=== PATIENT | female | born 1975 | race Hispanic/Latino ===

== ENCOUNTER 2019-06-17 08:26 | Emergency (ER) | payer SELFPAY ==
[~2019-06-17] VITALS: Ht 157.5 cm; Wt 54.4 kg
--- OUTSIDE RECORDS SUMMARY | 2019-06-17 08:29 | XMS REPORT | Continuity of Care Document ---
Author Author Aniika Address Unknown Phone Unavailable Care Team Providers Care Bulkhead Carpenter Name Role Phone HandInScan Unavailable Unavailable Problems Problem Status Onset Date Classification Date Reported Comments Source Abnormal uterine and vaginal bleeding, unspecified 06/18/2018 12/30/2018 [facility] Z12.31 - ENCNTR SCREEN MAMMOGRAM FOR MA Active 01/09/2016 [facility] 729.5 - PAIN IN LIMB Active 2013 [facility] 338 - PAIN NEC 564.0 - CONSTIPATION Active 03/20/2012 [facility] 789.00 - ABDMNAL PAIN UN 615.9 - UTERINE INFLAM Active 03/08/2011 [facility] WHEEZING Active 01/14/2011 [facility] Intramural leiomyoma of uterus 12/30/2018 [facility] Medications No Data Provided for This Section Allergies, Adverse Reactions, Alerts No Known Medication Allergies Immunizations No Data Provided for This Section Results No Data Provided for This Section Pathology Reports No Data Provided for This Section Diagnostic Reports Report Value Date Source Pelvis w Pelvis Transvaginal US EXAM: Pelvic ultrasound. CLINICAL HX: D25.1 Intramural leiomyoma of uterus; N93.9 Abnormal uterine and vaginal bleeding, unspecified - D25.1 Intramural leiomyoma of uterus; N93.9 Abnormal uterine and vaginal bleeding, unspecified. Age: 42 years. Gender: Female. Last menstrual period: 06/02/2018. TECHNIQUE: Grayscale and Doppler sonogram of the pelvis. Transabdominal technique was used. Transvaginal technique was used for better evaluation of the pelvic viscera. COMPARISON: None. FINDINGS: Uterus: -- Orientation: Retroverted. -- Size: Measures 9.2 x 5 x 5.8 cm. -- Other: 1.2 x 0.7 x 1.1 cm intramural right uterine fibroid. Endometrial stripe: -- Thickness: Measures 1.5 cm which is not thickened by measurement. -- Other: Question submucosal lesion at the fundus (series 1 image 62). Right ovary: -- Size: Measures 2.5 x 1.3 x 1.9 cm. -- Doppler flow: Present. -- Other: None. Left ovary: -- Size: Measures 2.9 x 2 x 2.3 cm. -- Doppler flow: Present. -- Other: 2.1 cm simple follicular cyst; no follow-up imaging recommended (per guidelines below). Free fluid: Trace. Other: None. IMPRESSION: 1. Small intramural fibroid. 2. Question submucosal lesion. Consider VACUUM BOTTLE ASSEMBLER evaluation. Note: Recommendations for f/u of anechoic simple cyst* Pre-menopause: < 5 cm No f/u necessary >5cm - <7cm US f/u yearly >7cm Consider MR w/IVC or surgical evaluation Post-menopause (1 year or more since last menstrual period): <3 cm No f/u necessary >3cm - <7 cm US f/u yearly >7cm Consider MR w/IVC or surgical evaluation Reference: 2010 SRU Consensus Conference Statement on the Management of asymptomatic ovarian and adnexal cysts imaged at US. Radiology. 2009;256(3): 943-54. (*Also includes simple cyst with single thin <3mm septation or focal calcification in wall of cyst) 06/12/2018 [facility] Breast Mammo Scrn SOLO incl CAD MA - BREAST MAMMO SCRN SOLO INCL CAD MA BILATERAL DIGITAL SCREENING MAMMOGRAM WITH CAD: 05/26/2017 CLINICAL: Screening/Z12.31. Current study was evaluated with a Computer Aided Detection (CAD) system. Comparison is made to exams dated: 01/19/2016 mammogram and 01/06/2015 mammogram - [facility]. The tissue of both breasts is extremely dense. This may lower the sensitivity of mammography. No significant masses, calcifications, or other findings are seen in either breast. There has been no significant interval change. IMPRESSION: NEGATIVE There is no mammographic evidence of malignancy. A 1 year screening mammogram is recommended. Professional services are provided by the [facility]. Jone Leon M.D., cm/penrad:05/28/2017 10:24:19 Bindery Machine Tender: Livier High, [facility] This exam was dictated and interpreted by [id number] for EMELIA Grant. letter sent: Normal [facility]enda Mammogram BI-RADS: 1 Negative 05/26/2017 EMELIA W[facility]MAN [place] Pelvis w Pelvis Transvaginal US EXAM: Pelvis w Pelvis Transvaginal US HISTORY: - R10.2 Pelvic and perineal pain COMPARISON: None Technique: Transabdominal and Transvaginal Carreon scale and color doppler with limited spectral doppler imaging of the uterus and ovaries. Findings: The uterus measures 10.0 x 4.8 x 5.4 cm. The endometrial stripe measures 0.4 cm. There is 1.2 cm fibroid in the anterior right uterus intramural. Nabothian cysts are noted. The right ovary measures 3.0 x 1.8 x 2.6 cm. The left ovary measures 2.7 x 1.1 x 2.3 cm. There is normal doppler flow. No large masses are seen in the bilateral adnexa. There is moderate free fluid. The bladder is distended and grossly unremarkable. IMPRESSION: Small fibroid. Moderate free fluid is likely physiologic. 05/26/2017 [facility] Mammo Screening Solo MA - DIGITAL MAMMO SCREENING SOLO MA BILATERAL DIGITAL SCREENING MAMMOGRAM WITH CAD: 01/19/2016 CLINICAL: Routine. Current study was evaluated with a Computer Aided Detection (CAD) system. Comparison is made to exam dated: 01/06/2015 mammogram - [facility]. The tissue of both breasts is heterogeneously dense, which could obscure detection of small masses. No significant masses, calcifications, or other findings are seen in either breast. There has been no significant interval change. IMPRESSION: NEGATIVE There is no mammographic evidence of malignancy. A 1 year screening mammogram is recommended. Jone Leon M.D., cm/penrad:01/22/2016 09:34:36 Bindery Machine Tender: Karin Calabrese RT(R)(M), [facility] This exam was dictated and interpreted by [id number] for EMELIA Grant. letter sent: Normal exam Mammogram BI-RADS: 1 Negative 01/19/2016 [facility] Breast Limited Uni US - BREAST LIMITED UNI US/L ULTRASOUND OF LEFT BREAST: 01/19/2015 CLINICAL: 611.72 Mastodynia. Comparison is made to exam dated: 01/06/2015 mammogram - [facility]. Color flow and real-time ultrasound of the left breast were performed. Carreon scale images of the real-time examination were reviewed. IMPRESSION: NEGATIVE There is no sonographic evidence of malignancy. A 1 year screening mammogram is recommended. SUMMARY: No sonographic correlate to the reported pain in the left breast. Therefore, management of this symptom should be based on findings at clinical examination. Additional imaging should be considered if symptoms recur or worsen. I discussed these findings with the patient in person at the time of examination. Elizabeth Vaz [facility]/penrad:01/19/2015 16:23:01 Bindery Machine Tender: Lisha Gonzalez, [facility] This exam was dictated and interpreted by [id number] for Rudy. letter sent: Normal exam Ultrasound BI-RADS: 1 Negative 01/19/2015 [facility]ammo Screening Solo MA - DIGITAL MAMMO SCREENING SOLO MA BILATERAL FIRST EVER DIGITAL SCREENING MAMMOGRAM WITH CAD: 01/06/2015 CLINICAL: Routine. Current study was evaluated with a Computer Aided Detection (CAD) system. No prior exams were available for comparison. The tissue of both breasts is heterogeneously dense, which could obscure detection of small masses. No significant masses, calcifications, or other findings are seen in either breast. IMPRESSION: NEGATIVE There is no mammographic evidence of malignancy. A 1 year screening mammogram is recommended. SUMMARY: The patient reported a history of breast pain on her intake questionaire. There is no mammographic correlate to the report symptom of pain in left breast. Therefore, management of this symptom should be based on findings at clinical examination. Targeted sonography should be considered if the pain is clinically suspicious. Dr. Vanita Kern D.O. /penrad:01/06/2015 15:52:09 Bindery Machine Tender: Sheridan COCHRAN(Penny)([place]), [facility] This exam was dictated and interpreted by [id number] for EMELIA Aguero. letter sent: Normal exam Mammogram BI-RADS: 1 Negative 01/06/2015 [facility] Pelvis with Pelvis Transvaginal US PELVIC SONOGRAM CLINICAL HISTORY: 626.4, irregular periods COMPARISON IMAGIN03/23/2012 TECHNIQUE: Transabdominal and transvaginal real time sonography was performed by an pharmacy technologist, and hvac sales representative static images were submitted for review. FINDINGS: Uterus: Measures 8.2 x 4.4 x 6.5 cm. Endometrial stripe is 14 mm in thickness, within normal limits. No distinct uterine mass is identified. There is a small amount of free fluid in the pelvis. Right Adnexa: Ovary measures 2.9 x 2.2 x 3.5 cm. No abnormal Doppler signal or suspicious adnexal abnormality. Left Adnexa: Ovary measures 2.2 x 1.5 x 2.8 cm. No abnormal Doppler signal or suspicious adnexal abnormality. IMPRESSION: No significant abnormality. 12/16/2013 [facility] Consultation Notes No Data Provided for This Section Discharge Summaries No Data Provided for This Section History and Physicals No Data Provided for This Section Vital Signs No Data Provided for This Section Encounters Location Location Details Encounter Type Encounter Number Reason For Visit Attending Provider ADM Date DC Date Status Source OD [id number] 338 - PAIN NEC 564.0 - CONSTIPATION FER REGINALD 03/23/2012 Active [facility] [place] [facility] [id number] Araceli Reji 01/06/2015 01/07/2015 [facility] [place] [facility] [id number] Araceli Reji 01/19/2015 01/20/2015 [facility] [place] [facility] [id number] Araceli Reji 01/19/2016 01/20/2016 [facility] [place] [facility] [id number] Araceli Reji 05/26/2017 05/27/2017 [facility] [place] [facility] [id number] Kala Maryann 06/12/2018 06/13/2018 [facility] [place] [id number] 789.00 - ABDMNAL PAIN UN 615.9 - UTERINE INFLAM ARACELI REJI Cancel [facility] [id number] WHEEZING ARACELI REJI Cancel [facility] Procedures No Data Provided for This Section Assessment and Plan No Data Provided for This Section Plan of Care No Data Provided for This Section Social History Social History Date Source No data available for this section 06/13/2018 [facility] Family History No Data Provided for This Section Advance Directives No Data Provided for This Section Functional Status No Data Provided for This Section
--- OUTSIDE RECORDS SUMMARY | 2019-06-17 08:30 | XMS REPORT | Summary of Care ---
Author Organization Unknown Address Unknown Phone Unavailable Encounter [facility] Encntr_alias([facility]) [id number] Date(s): 01/19/15 - 01/19/15 [facility] Outpatient Imaging - [address] [address] [phone] Discharge Disposition: Home Physician Attending: Gardenia Chicas MD Vital Signs No data available for this section Problem List No data available for this section Allergies, Adverse Reactions, Alerts No data available for this section Medications No data available for this section Results No data available for this section Immunizations No data available for this section Procedures No data available for this section Social History No data available for this section Assessment and Plan No data available for this section
--- OUTSIDE RECORDS SUMMARY | 2019-06-17 08:30 | XMS REPORT | Summary of Care ---
Author Author [facility] [place] Organization [facility] [place] Address Unknown Phone Unavailable Encounter HQ Encntr_alismita(FIN) [id number] Date(s): 05/26/17 - 05/26/17 [facility] [place] [address] [place] [phone] Discharge Disposition: Home or Self Care Attending Physician: Gardenia Chicas MD Vital Signs No data [...]
--- OUTSIDE RECORDS SUMMARY | 2019-06-17 08:30 | XMS REPORT | Summary of Care ---
Author Author [facility] [place] Organization [facility] [place] Address Unknown Phone Unavailable Encounter [facility] Encntr_alismita(FIN) [id number] Date(s): 01/19/16 - 01/19/16 [facility] [place] [address] [place], [place] [address] [phone] Discharge Disposition: Home Attending Physician: Gardenia Chicas MD Vital Signs [...]
--- OUTSIDE RECORDS SUMMARY | 2019-06-17 08:30 | XMS REPORT | Summary of Care ---
Author Author [facility] - [place] Organization [facility] [place] Address Unknown Phone Unavailable Encounter [facility] Encntr_alias(FIN) [id number] Date(s): 06/12/18 - 06/12/18 [facility] - [place] [address] [place] [phone] Encounter Diagnosis Abnormal uterine and vaginal bleeding, unspecified (Final) - 06/17/18 Intramural leiomyoma of uterus (Final) - Discharge Disposition: Home or Self Care Attending Physician: Kala Wolf MD Referring Physician: Kala Wolf MD Vital Signs No data available for [...]
[2019-06-17 10:39] LABS: BASOPHILS # (AUTO) 0.1 (0.0-0.1); BASOPHILS % 0.8 % (0.0-1.0); EOSINOPHILS # (AUTO) 0.1 (0.0-0.4); EOSINOPHILS % 0.9 % (0.0-6.0); HEMATOCRIT 35.8 % (34.2-44.1); HEMOGLOBIN 11.3 g/dL (12.0-16.0); LYMPHOCYTES # (AUTO) 2.8 (1.0-3.2); LYMPHOCYTES % 36.3 % (18.0-39.1); MEAN CORPUSCULAR HEMOGLOBIN 24.6 pg (28-32); MEAN CORPUSCULAR HGB CONC 31.6 g/dL (31-35); MONOCYTES # (AUTO) 0.5 (0.2-0.8); MONOCYTES % 7.1 % (4.4-11.3); NEUTROPHILS # (AUTO) 4.1 (2.1-6.9); NEUTROPHILS % 54.5 % (38.7-80.0); PLATELET COUNT 323 x10e3/uL (140-360); RED BLOOD COUNT 4.59 x10e6/uL (3.6-5.1); RED CELL DISTRIBUTION WIDTH 15.9 % (11.7-14.4)
[2019-06-17 11:01] LABS: ALANINE AMINOTRANSFERASE 14 IU/L (0-55); ALBUMIN/GLOBULIN RATIO 1.4 (0.8-2.0); ALKALINE PHOSPHATASE 56 IU/L (40-150); ANION GAP 10.5 mmol/L (8-16); BLOOD UREA NITROGEN 11 mg/dL (7-26); BUN/CREATININE RATIO 13 (6-25); CALCIUM 9.1 mg/dL (8.4-10.2); CARBON DIOXIDE 23 mmol/L (22-29); CHLORIDE 107 mmol/L (98-107); CREATINE KINASE 87 IU/L (29-168); CREATININE, SERUM 0.84 mg/dL (0.57-1.11); EST GLOMERULAR FILTRATION RATE > 60 ML/MIN (60-); GLUCOSE 74 mg/dL (74-118); POTASSIUM 3.5 mmol/L (3.5-5.1); SODIUM 137 mmol/L (136-145)
--- NOTE | 2019-06-17 11:22 | Diagnostic Imaging Report ---
CT BRAIN WO HISTORY: Numbness, right face COMPARISON: None. TECHNIQUE: Noncontrast axial scans were obtained from skull base to the vertex. Coronal and sagittal reconstructions obtained from the axial data. One or more of the following dose reduction techniques were used: Automated exposure control, adjustment of the mA and/or kV according to patient size, and/or utilization of iterative reconstruction technique. DISCUSSION: Scalp/Skull: Unremarkable. Brain sulci: Appropriate for patient's age. Ventricles: Normal in size and configuration. No hydrocephalus. Extra-axial spaces: No masses or fluid collections. Parenchyma: Mild globi pallidi calcifications may be physiologic. Otherwise, no mass, hemorrhage, or large vascular territory acute infarct. Dural sinuses: No abnormal densities. Sellar/Suprasellar region: Intact. Skull base: Intact. Incidental findings: None. IMPRESSION: No acute intracranial abnormalities. Signed by: Dr. Jayy Carrizales M.D. on 06/17/2019 11:19 AM
== END 2019-06-17 12:50 | disposition home or self-care (01) ==
LOC: ER 08:26
DX: R07.89 Other chest pain (principal); R53.1 Weakness
CPT/HCPCS: 36415; 70450; 80053; 82550; 82553; 84484; 85025; 93005; 99284

== ENCOUNTER → 2025-02-18 | Day surgery (SDC) | payer OTHER ==
[~2025-02-18] MED LIST: FENTANYL CITRATE/PF 100MCG/2 ML INJ ONE; GLUCAGON FOR INJ 1 MG VIAL ONE; HYOSCYAMINE SULFATE 0.5 MG/ML INJ ONE; LIDOCAINE HCL 2% LOCAL INJ 5 ML SDV VIAL INJ ONE; LINZESS72 MCG PO; MIDAZOLAM HCL 2 MG/2 ML VIAL ONE; PROPOFOL IV EMULSION 10 MG/ML 20 ML VIAL ONE
[2025-02-18] MEDS: LACTATED RINGER'S 1,000 ML ONE (13:40)
[2025-02-18 17:09] VITALS: TEMP 98.6
[2025-02-18 17:45] VITALS: BP 124/85; PULSE 88; RESP 16; O2SAT 98
== END | disposition home or self-care (01) ==
LOC: OR 13:08
PROVIDERS: ATTEND Internal Medicine Gastroenterology
DX: K59.04 Chronic idiopathic constipation (principal); K64.8 Other hemorrhoids; K62.89 Other specified diseases of anus and rectum; Z71.89 Other specified counseling; E78.5 Hyperlipidemia, unspecified; M06.9 Rheumatoid arthritis, unspecified; M19.90 Unspecified osteoarthritis, unspecified site; Z01.810 Encounter for preprocedural cardiovascular examination; Z68.28 Body mass index [BMI] 28.0-28.9, adult; Z71.3 Dietary counseling and surveillance
CPT/HCPCS: 45378; 93005; J1980; J2003; J2250; J2704; J3010; J7121